=== PATIENT | female | born 1980 | race Two or more races ===

== ENCOUNTER → 2019-04-02 | Emergency (ER) | payer SELFPAY ==
[~2019-04-02] VITALS: Ht 152.4 cm; Wt 90.0 kg
[~2019-04-02] MED LIST: ASPI-1158 PO; MORPHINE SULFATE 10 MG/ML CPJ IM ONE; MORPHINE SULFATE 4 MG/ML CPJ (NOT FOR IM USE) IV ONE; ONDANSETRON HCL 4MG TABLET PO ONE; SODIUM CHLORIDE 0.9% 1,000 ML IV ONE; WARF4TAB40 PO
[2019-04-02 10:12] LABS: BASOPHILS % 0.6 % (0.0-2.0); EOSINOPHILS % 5.7 % (0.0-5.0); HEMATOCRIT. 31.4 % (36.0-48.0); HEMOGLOBIN. 9.8 g/dL (12.0-16.0); LYMPHOCYTES % 22.7 % (20.0-50.0); MEAN CORPUSCULAR VOLUME 70.7 fL (81.0-99.0); MEAN PLATELET VOLUME 8.4 fl (7.4-10.4); MONOCYTES % 7.3 % (2.0-8.0); NEUTROPHILS % 63.7 % (40.0-76.0); PLATELET 401 x1000/uL (130-400); RED BLOOD CELL COUNT 4.44 mill/uL (4.2-5.4); RED CELL DISTRIBUTION WIDTH 24.4 % (11.6-14.6)
[2019-04-02 10:24] LABS: CHLORIDE 110 mEq/L (98-107)
[2019-04-02 10:54] LABS: PROTHROMBIN TIME 9.8 sec (9.6-11.0)
[2019-04-02 11:10] LABS: PLATELET ESTIMATE SLIGHTLY INCREASED
[2019-04-02 11:20] LABS: HCG SCREEN INDETERMINATE
[2019-04-02 11:23] VITALS: BP 113/95
[2019-04-02 13:32] LABS: CLARITY URINE CLEAR (CLEAR); COLOR URINE YELLOW (YELLOW); KETONES URINE NEGATIVE (NEGATIVE); LEUKOCYTE ESTERASE URINE NEGATIVE (NEGATIVE); NITRITE URINE NEGATIVE (NEGATIVE); OCCULT BLOOD URINE NEGATIVE (NEGATIVE); PH URINE 7.5 (4.5-8.0); PROTEIN URINE NEGATIVE (NEGATIVE); SPECIFIC GRAVITY URINE 1.014 (1.005-1.030); UROBILINOGEN URINE 0.2 E.U./dL (0.2-1.0)
== END ==
LOC: ER 08:47
DX: R10.9 Unspecified abdominal pain (principal); R11.10 Vomiting, unspecified; R31.9 Hematuria, unspecified; Z87.442 Personal history of urinary calculi; I51.9 Heart disease, unspecified; Z90.49 Acquired absence of other specified parts of digestive tract; Z98.890 Other specified postprocedural states; Z90.710 Acquired absence of both cervix and uterus; Z79.899 Other long term (current) drug therapy
CPT/HCPCS: 36415; 80053; 81003; 83690; 84702; 84703; 85025; 85610; 96361; 96374; 96376; 99283; J2270; J7030; Q0162; Z7610